=== PATIENT | female | born 1960 | race Caucasian/White ===

== ENCOUNTER → 2017-03-04 | Outpatient (CLI) | payer BC, OTHER ==
[~2017-03-04] MED LIST: AMARYL4 MG PO; AMITRIPTYLINE H50 M2 PO; CARVEDILOL25 MG PO; IBUPROFEN 800800 MG PO; JANUMET 50-5001 EACH PO; NEURONTIN600 MG PO; NORVASC10 MG PO; PROTONIX40 M2 PO
== END ==
LOC: RAD 01:45
DX: Z12.31 Encounter for screening mammogram for malignant neoplasm of breast (principal)

== ENCOUNTER 2017-04-30 17:21 | Emergency (ER) | payer BC, OTHER ==
[~2017-04-30] VITALS: Ht 160 cm; Wt 87.5 kg
--- NOTE | ~2017-04-30 | EKG ---
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
[2017-04-30 18:44] LABS: HEMATOCRIT 30.1 % (37.0-47.0); HEMOGLOBIN 10.1 gm/dL (12.0-15.0); MCH 26.9 pg (26.0-34.0); MCHC 33.5 g/dL (28.0-37.0); MCV 80.1 fL (80.0-100.0); PLATELET COUNT 280 thou/uL (150-400); RBC 3.76 mil/uL (4.20-5.00); WBC 20.9 thou/uL (4.0-11.0)
[2017-04-30 18:45] LABS: MANUAL DIFF YES
[2017-04-30 18:52] LABS: CALCIUM 9.2 mg/dL (8.5-10.1); CREATININE 0.9 mg/dL (0.6-1.0); POTASSIUM 4.5 mmol/L (3.5-5.1)
[2017-04-30 19:02] LABS: ABSOLUTE NEUTROPHILS 13.6 thou/uL (1.4-8.2); TOTAL CELL COUNT 100
[2017-04-30] MEDS ORDERED: NORCO 5-325 TA1 EACH PO (21:36)
[2017-04-30 21:54] VITALS: BP 114/75
== END 2017-04-30 21:55 | disposition home or self-care (01) ==
LOC: ER 17:21
PROVIDERS: Emergency Medicine
DX: S76.811A Strain of other specified muscles, fascia and tendons at thigh level, right thigh, initial encounter (principal); D72.829 Elevated white blood cell count, unspecified; E11.42 Type 2 diabetes mellitus with diabetic polyneuropathy; Z90.49 Acquired absence of other specified parts of digestive tract; Z98.890 Other specified postprocedural states; X58.XXXA Exposure to other specified factors, initial encounter; Y93.89 Activity, other specified; Y92.89 Other specified places as the place of occurrence of the external cause; Y99.0 Civilian activity done for income or pay

== ENCOUNTER 2017-05-16 04:44 | Emergency (ER) | payer BC, OTHER ==
[~2017-05-16] VITALS: Ht 160 cm; Wt 88.0 kg
[~2017-05-16 04:44] MED LIST changes: +NORCO 5-325 TA1 EACH PO
[2017-05-16] MEDS ORDERED: [UNRECOGNIZED DRUG - OTHER] (04:53)
[2017-05-16] MEDS ORDERED: DAPAGLIFLOZIN PO (04:54)
[2017-05-16 07:26] VITALS: BP 127/75
== END 2017-05-16 07:25 | disposition home or self-care (01) ==
LOC: ER 04:44
DX: S61.511A Laceration without foreign body of right wrist, initial encounter (principal); E11.40 Type 2 diabetes mellitus with diabetic neuropathy, unspecified; W25.XXXA Contact with sharp glass, initial encounter; Y93.89 Activity, other specified; Y92.89 Other specified places as the place of occurrence of the external cause; Y99.8 Other external cause status

== ENCOUNTER 2019-06-13 15:45 | Emergency (ER) | payer BC, OTHER ==
[~2019-06-13] VITALS: Ht 160 cm; Wt 86.2 kg
[~2019-06-13 15:45] MED LIST changes: +DAPAGLIFLOZIN PO; +[UNRECOGNIZED DRUG - OTHER]
[2019-06-13 16:12] LABS: URINE BILIRUBIN NEGATIVE (Negative); URINE BLOOD NEGATIVE (Negative); URINE CLARITY CLEAR; URINE COLOR YELLOW; URINE GLUCOSE-RANDOM* 3+ (Negative); URINE KETONES 1+ (Negative); URINE LEUKOCYTES-REFLEX NEGATIVE (Negative); URINE PROTEIN (DIPSTICK) NEGATIVE (Negative); URINE SPECIFIC GRAVITY <= 1.005 (1.005-1.035); URINE UROBILINOGEN 0.2 E.U./dl (0.2-1.0)
[2019-06-13 16:13] LABS: URINE NITRITE-REFLEX POSITIVE (Negative)
[2019-06-13 16:24] LABS: SQUAMOUS 0-3 Few /LPF (0-3)
[2019-06-13 16:25] LABS: CASTS None Seen /LPF (None Seen); CRYSTALS None Seen /LPF (None Seen); MUCUS None Seen strn/LPF (None Seen); URINE RBC None Seen /HPF (0-2); URINE WBC-REFLEX 6-15 Few /HPF (0-5)
[2019-06-13 16:55] LABS: ABSOLUTE NEUTROPHILS 5.1 thou/uL (1.4-8.2); EOSINOPHILS 1.3 % (0.0-3.0); HEMOGLOBIN 12.9 gm/dL (12.0-15.0); LYMPHOCYTES 32.3 % (24.0-44.0); MCH 26.2 pg (26.0-34.0); MCHC 33.1 g/dL (28.0-37.0); MCV 79.3 fL (80.0-100.0); MONOCYTES 8.4 % (1.0-8.0); PLATELET COUNT 205 thou/uL (150-400); RBC 4.92 mil/uL (4.20-5.00); RDW 16.4 % (10.5-14.5); WBC 8.9 thou/uL (4.0-11.0)
[2019-06-13 16:59] LABS: ANION GAP 9 mmol/L (7-16); BUN 7 mg/dL (7-18); CALCIUM 8.7 mg/dL (8.5-10.1); CHLORIDE 101 mmol/L (98-107); CO2 25 mmol/L (21-32); CREATININE 0.5 mg/dL (0.6-1.0); GLUCOSE 245 mg/dL (74-106); POTASSIUM 3.5 mmol/L (3.5-5.1); SODIUM 135 mmol/L (136-145)
[2019-06-13 17:09] LABS: ALBUMIN 3.7 g/dL (3.4-5.0); LIPASE 32 U/L (73-393); SGOT 57 U/L (15-37); SGPT 91 U/L (30-65); TOTAL BILIRUBIN 0.4 mg/dL (<0.1-1.0); TROPONIN-I <0.06 ng/mL (<0.06)
[2019-06-13 17:17] VITALS: BP 140/71
[2019-06-13] MEDS ORDERED: MACROBID 100 M100 M1 PO (17:21)
--- NOTE | 2019-06-14 07:50 | EKG ---
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1960 Requested By: Shawna Altamirano Order Number: [id number] MD: Sanket Goldsmith Measurements Intervals [place] Rate: 109 P: 70 [place]: 150 QRS: 50 QRSD: 81 T: 34 QT: 331 QTc: 446 Interpretive Statements Sinus tachycardia Compared to ECG 04/30/2017 17:50:06 No significant changes Electronically Signed On 06-14-2019 7:50:15 CDT by Sanket Goldsmith [email or web address] ��������������������������������������������� <ELECTRONICALLY SIGNED> ���������������������������������������� By: Sanket Goldsmith MD, [facility] ��������������������������������������������� 06/14/19 0750 1611 1611 Sanket Goldsmith MD, FACC /EPI
== END 2019-06-13 17:17 | disposition home or self-care (01) ==
LOC: ER 15:45
PROVIDERS: Physician Assistant
DX: E86.0 Dehydration (principal); N39.0 Urinary tract infection, site not specified; E11.65 Type 2 diabetes mellitus with hyperglycemia; E11.40 Type 2 diabetes mellitus with diabetic neuropathy, unspecified; Z79.899 Other long term (current) drug therapy

== ENCOUNTER 2021-08-19 14:34 | Inpatient (IN) | payer OTHER ==
[~2021-08-19] VITALS: Ht 154.9 cm; Wt 81.6 kg
[~2021-08-19 14:34] MED LIST changes: -AMARYL4 MG PO; +GLYBURIDE 5 MG T5 M1 PO; +MACROBID 100 M100 M1 PO
[2021-08-19 14:42] VITALS: BP 95/56
[2021-08-19 15:12] LABS: ABSOLUTE NEUTROPHILS 8.1 thou/uL (1.4-8.2); BASOPHILS 0.6 % (0.0-2.0); EOSINOPHILS 0.2 % (0.0-3.0); HEMATOCRIT 35.9 % (37.0-47.0); HEMOGLOBIN 11.9 gm/dL (12.0-15.0); LYMPHOCYTES 17.7 % (24.0-44.0); MCH 28.9 pg (26.0-34.0); MCHC 33.2 g/dL (28.0-37.0); MCV 87.1 fL (80.0-100.0); MONOCYTES 6.8 % (1.0-8.0); PLATELET COUNT 277 thou/uL (150-400); POLYS 74.7 % (36.0-66.0); RBC 4.12 mil/uL (4.20-5.00); RDW 13.5 % (10.5-14.5); WBC 10.8 thou/uL (4.0-11.0)
[2021-08-19 15:36] LABS: ALBUMIN 3.7 g/dL (3.4-5.0); CALCIUM 8.3 mg/dL (8.5-10.1); CREATININE 1.5 mg/dL (0.6-1.0); DIRECT BILIRUBIN 0.1 mg/dL (<0.1-0.2); TOTAL BILIRUBIN 0.3 mg/dL (0.2-1.0)
--- NOTE | 2021-08-19 16:12 | EKG ---
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
[2021-08-19] MEDS ORDERED: FREESTYLE LIBR1 EAC2 MISCELL (17:02)
[2021-08-19 17:22] LABS: URINE BILIRUBIN NEGATIVE (Negative); URINE BLOOD NEGATIVE (Negative); URINE CLARITY CLEAR; URINE COLOR YELLOW; URINE GLUCOSE-RANDOM* 3+ (Negative); URINE KETONES NEGATIVE (Negative); URINE LEUKOCYTES-REFLEX NEGATIVE (Negative); URINE NITRITE-REFLEX NEGATIVE (Negative); URINE PROTEIN (DIPSTICK) NEGATIVE (Negative); URINE SPECIFIC GRAVITY <= 1.005 (1.005-1.035); URINE UROBILINOGEN 0.2 E.U./dl (0.2-1.0)
[2021-08-19 18:27] VITALS: BP 96/52
[2021-08-19 18:52] VITALS: BP 137/74
[2021-08-19 20:25] VITALS: BP 140/85
--- NOTE | 2021-08-20 01:16 | NUR ---
ADMIT PT ADMITTED TO ROOM 361 FROM ED. BEING ADMITTED WITH HYPEROSMOLAR STATE. ACCUCHECK 269 ON ARRIVAL 12 UNITS SSI, AND 32 UNITS OF SCHEDULED LANTUS GIVEN SQ. VSS. TELEMETRY INTACT READING SR/ST WITH RATES FROM 70'S TO 90'S. PT DENIES PAIN. VERY DROWSY, UP WITH SBA TO BSC FOR SAFETY VOIDING LARGE AMOUNT OF DARK YELLOW URINE. SKIN C/D/I NO AREAS OF BREAKDOWN NOTED. ADMISSION QUESTIONAIRE AND ASSESSMENT COMPLETED, SPOUSE TO BRING IN MED LIST IN AM. PT ORIENTED TO ROOM CALL LIGHT SYSTEM AND POC. KOVACS SCORE [address]
[2021-08-20 03:07] VITALS: BP 139/85
[2021-08-20 06:57] LABS: CALCIUM 7.8 mg/dL (8.5-10.1); POTASSIUM 3.4 mmol/L (3.5-5.1)
[2021-08-20 06:58] LABS: CREATININE 0.5 mg/dL (0.6-1.0)
[2021-08-20 07:02] LABS: ALBUMIN 3.1 g/dL (3.4-5.0); MAGNESIUM 1.7 mg/dL (1.8-2.4); TOTAL BILIRUBIN 0.3 mg/dL (0.2-1.0); TOTAL PROTEIN 5.8 g/dL (6.4-8.2)
[2021-08-20 07:11] VITALS: BP 153/94
[2021-08-20] MEDS ORDERED: LISINOPRIL10 MG PO (10:16)
[2021-08-20] MEDS ORDERED: FLONASE 0.05%50 MCG (10:46)
--- NOTE | 2021-08-20 15:56 | NUR ---
TODAY THIS PT HAS HAD NO STATED PAIN AND HAS HAD STABLE VS. SHE HAS BEEN TOLERATING HER MEDICATIONS WELL. HER FLUIDS HAS BEEN D/C. SHE HAS BEEN ABLE TO GET UP BY HERSELF WITHOUT DIFFICULTY. SHE OTHERWISE AWAITS FOR THE NEXT PLAN.
--- NOTE | 2021-08-20 16:17 | NUR ---
CM reviewed chart and discussed with the nurse. Introduced role of CM and discussed dc planning. Was admitted d/t a hyperosmolar state. Pt is alert and oriented x 4, currently lives at home with her . House is a ranch style, 2 small steps to enter the home are present. Pt currently works at a [employer] ([employer]) for the past 18 years. 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 Fully vaccinated for COVI and is considering taking the booster upon dc with her PCP. Pt stated she has a cane that was given to her by her co workers one time when she fell ill and felt she was not steady. Pt stated she rarely (only when sick) to feel steady, on normal days pt does not require any aids. Pt is wanting for advance directives and the process of DPOA started, requested that this be discussed tomorrow when her is present in the morning. Pt has not had any home health or rehab in the past. CM to follow this case for DC needs.
[2021-08-20 19:32] VITALS: BP 133/82
--- NOTE | 2021-08-20 23:15 | NUR ---
PROGRESS PT A/O X4. UP AD RADHA VOIDING LARGE AMOUNTS OF CLEAR YELLOW URINE. DENIES PAIN. ACCUCHECKS AND SSI CONTINUE 141 AT 2100 AND 4 UNITS SSI ADMINISTERED PER PROTOCOL. PT MENTATION BACK TO BASELINE, GAIT STEADY PLAN IS TO DC HOME TOMORROW.
[2021-08-21 01:06] LABS: GLYCOHEMOGLOBIN (HGB A1C) 11.5 % (4.8-5.6)
[2021-08-21 04:20] VITALS: BP 121/77
[2021-08-21 06:25] LABS: CALCIUM 8.5 mg/dL (8.5-10.1); CREATININE 0.5 mg/dL (0.6-1.0); MAGNESIUM 1.8 mg/dL (1.8-2.4); POTASSIUM 3.6 mmol/L (3.5-5.1); TOTAL BILIRUBIN 0.3 mg/dL (0.2-1.0); TOTAL PROTEIN 6.5 g/dL (6.4-8.2)
[2021-08-21 07:24] VITALS: BP 152/93
[2021-08-21] MEDS ORDERED: TRESIBA100 UNIT/1 SUBQ (09:43)
[2021-08-21] MEDS ORDERED: NOVOLOG FL100 UNIT/M SUBQ ×2 (09:51→13:54)
[2021-08-21] MEDS ORDERED: LANTUS SUBQ (13:54)
[2021-08-21] MEDS ORDERED: CARVEDILOL25 MG PO (13:54)
[2021-08-21] MEDS ORDERED: METFORMIN HCL500 M3 PO (13:59)
[2021-08-21 15:26] VITALS: BP 152/93
--- NOTE | 2021-08-21 15:29 | NUR ---
DISCHARGE NOTE: SW reviewed chart and spoke with nursing and attending physician. Pt is medically stable for discharge home today. Pt to follow up with endocrinology as an outpatient. Pt's family to provide transportation home. No SW needs identified at this time, but is available to assist should needs arise.
[2021-08-21 15:31] VITALS: BP 152/93
== END 2021-08-21 15:54 | disposition home or self-care (01) | DRG 639 ==
LOC: ER 14:34 → EROBS 16:57 → 3W 16:57
PROVIDERS: Nurse Practitioner; ADMIT Hospitalist; ATTEND Hospitalist
DX: E11.00 Type 2 diabetes mellitus with hyperosmolarity without nonketotic hyperglycemic-hyperosmolar coma (NKHHC) (principal); Z79.899 Other long term (current) drug therapy; E11.21 Type 2 diabetes mellitus with diabetic nephropathy; Z79.4 Long term (current) use of insulin; Z79.84 Long term (current) use of oral hypoglycemic drugs; I10 Essential (primary) hypertension; Z87.440 Personal history of urinary (tract) infections
CPT/HCPCS: 10879

== ENCOUNTER 2021-09-24 10:05 | Emergency (ER) | payer OTHER ==
[~2021-09-24] VITALS: Ht 160 cm; Wt 77.1 kg
[~2021-09-24 10:05] MED LIST changes: +FLONASE 0.05%50 MCG; +FREESTYLE LIBR1 EAC2 MISCELL; +LANTUS SUBQ; +LISINOPRIL10 MG PO; +METFORMIN HCL500 M3 PO; +NOVOLOG FL100 UNIT/M SUBQ; +TRESIBA100 UNIT/1 SUBQ
[2021-09-24 13:01] VITALS: BP 150/88
== END 2021-09-24 13:02 | disposition home or self-care (01) ==
LOC: ER 10:05
DX: S00.83XA Contusion of other part of head, initial encounter (principal); I10 Essential (primary) hypertension; E11.40 Type 2 diabetes mellitus with diabetic neuropathy, unspecified; Z98.890 Other specified postprocedural states; Z90.49 Acquired absence of other specified parts of digestive tract; Z79.4 Long term (current) use of insulin; Z79.891 Long term (current) use of opiate analgesic; Z79.899 Other long term (current) drug therapy; W19.XXXA Unspecified fall, initial encounter; Y93.89 Activity, other specified; Y92.89 Other specified places as the place of occurrence of the external cause; Y99.8 Other external cause status